=== PATIENT | male | born 1940 | race Caucasian/White ===

== ENCOUNTER 2022-12-31 09:07 | Outpatient (CLI) | payer MEDICARE, BC | END 2022-12-31 09:08 | disposition home or self-care (01) | LOC: SCSMRI 09:07 | PROVIDERS: ATTEND Internal Medicine Hematology & Oncology | DX: C18.2 Malignant neoplasm of ascending colon (principal); R42 Dizziness and giddiness; R41.0 Disorientation, unspecified | CPT/HCPCS: 70553 ==